=== PATIENT | female | born 1955 | race Two or more races ===

== ENCOUNTER → 2020-01-03 | Outpatient (CLI) | payer OTHER ==
[~2020-01-03] MED LIST: LIDOCAINE 4% 50 ML SOLUTION TP ONE
== END | disposition home or self-care (01) ==
LOC: HBOWC 11:28
PROVIDERS: ATTEND Surgery Plastic and Reconstructive Surgery
DX: T81.31XA Disruption of external operation (surgical) wound, not elsewhere classified, initial encounter (principal); S31.109A Unspecified open wound of abdominal wall, unspecified quadrant without penetration into peritoneal cavity, initial encounter; E66.01 Morbid (severe) obesity due to excess calories; K21.9 Gastro-esophageal reflux disease without esophagitis; Z86.14 Personal history of Methicillin resistant Staphylococcus aureus infection; Z68.36 Body mass index [BMI] 36.0-36.9, adult; Z79.2 Long term (current) use of antibiotics; Y83.8 Other surgical procedures as the cause of abnormal reaction of the patient, or of later complication, without mention of misadventure at the time of the procedure; Y92.89 Other specified places as the place of occurrence of the external cause; X58.XXXA Exposure to other specified factors, initial encounter; Y93.89 Activity, other specified; Y99.8 Other external cause status
CPT/HCPCS: 11043; 11046; G0463

== ENCOUNTER → 2020-01-10 | Outpatient (CLI) | payer OTHER | END | disposition home or self-care (01) | LOC: HBOWC 09:56 | PROVIDERS: ATTEND Surgery Plastic and Reconstructive Surgery | DX: T81.31XD Disruption of external operation (surgical) wound, not elsewhere classified, subsequent encounter (principal); S31.109D Unspecified open wound of abdominal wall, unspecified quadrant without penetration into peritoneal cavity, subsequent encounter; E66.01 Morbid (severe) obesity due to excess calories; K21.9 Gastro-esophageal reflux disease without esophagitis; Z86.14 Personal history of Methicillin resistant Staphylococcus aureus infection; Z68.36 Body mass index [BMI] 36.0-36.9, adult; Z79.2 Long term (current) use of antibiotics; Y83.8 Other surgical procedures as the cause of abnormal reaction of the patient, or of later complication, without mention of misadventure at the time of the procedure; X58.XXXD Exposure to other specified factors, subsequent encounter | CPT/HCPCS: 11043; 11046; 97605 ==

== ENCOUNTER → 2020-01-17 | Outpatient (CLI) | payer OTHER | END | disposition home or self-care (01) | LOC: HBOWC 11:20 | PROVIDERS: ATTEND Surgery Plastic and Reconstructive Surgery | DX: T81.31XD Disruption of external operation (surgical) wound, not elsewhere classified, subsequent encounter (principal); S31.109D Unspecified open wound of abdominal wall, unspecified quadrant without penetration into peritoneal cavity, subsequent encounter; E66.01 Morbid (severe) obesity due to excess calories; K21.9 Gastro-esophageal reflux disease without esophagitis; Z86.14 Personal history of Methicillin resistant Staphylococcus aureus infection; Z68.36 Body mass index [BMI] 36.0-36.9, adult; Z79.2 Long term (current) use of antibiotics; Y83.8 Other surgical procedures as the cause of abnormal reaction of the patient, or of later complication, without mention of misadventure at the time of the procedure; X58.XXXD Exposure to other specified factors, subsequent encounter | CPT/HCPCS: 11043; 11046; 97605 ==

== ENCOUNTER → 2020-01-24 | Outpatient (CLI) | payer OTHER | END | disposition home or self-care (01) | LOC: HBOWC 10:13 | PROVIDERS: ATTEND Surgery Plastic and Reconstructive Surgery | DX: T81.31XD Disruption of external operation (surgical) wound, not elsewhere classified, subsequent encounter (principal); S31.109D Unspecified open wound of abdominal wall, unspecified quadrant without penetration into peritoneal cavity, subsequent encounter; E66.01 Morbid (severe) obesity due to excess calories; K21.9 Gastro-esophageal reflux disease without esophagitis; Z86.14 Personal history of Methicillin resistant Staphylococcus aureus infection; Z68.36 Body mass index [BMI] 36.0-36.9, adult; Z79.2 Long term (current) use of antibiotics; Y83.8 Other surgical procedures as the cause of abnormal reaction of the patient, or of later complication, without mention of misadventure at the time of the procedure; X58.XXXD Exposure to other specified factors, subsequent encounter | CPT/HCPCS: 11043; 11046; 97605 ==

== ENCOUNTER → 2020-01-31 | Outpatient (CLI) | payer OTHER | END | disposition home or self-care (01) | LOC: HBOWC 10:10 | PROVIDERS: ATTEND Surgery Plastic and Reconstructive Surgery | DX: T81.31XD Disruption of external operation (surgical) wound, not elsewhere classified, subsequent encounter (principal); S31.109D Unspecified open wound of abdominal wall, unspecified quadrant without penetration into peritoneal cavity, subsequent encounter; E66.01 Morbid (severe) obesity due to excess calories; K21.9 Gastro-esophageal reflux disease without esophagitis; Z86.14 Personal history of Methicillin resistant Staphylococcus aureus infection; Z68.36 Body mass index [BMI] 36.0-36.9, adult; Z79.2 Long term (current) use of antibiotics; Y83.8 Other surgical procedures as the cause of abnormal reaction of the patient, or of later complication, without mention of misadventure at the time of the procedure; X58.XXXD Exposure to other specified factors, subsequent encounter | CPT/HCPCS: 11043; 11046; 97605 ==

== ENCOUNTER → 2020-02-07 | Outpatient (CLI) | payer OTHER | END | disposition home or self-care (01) | LOC: HBOWC 09:57 | PROVIDERS: ATTEND Surgery Plastic and Reconstructive Surgery | DX: T81.31XD Disruption of external operation (surgical) wound, not elsewhere classified, subsequent encounter (principal); S31.109D Unspecified open wound of abdominal wall, unspecified quadrant without penetration into peritoneal cavity, subsequent encounter; E66.01 Morbid (severe) obesity due to excess calories; K21.9 Gastro-esophageal reflux disease without esophagitis; Z86.14 Personal history of Methicillin resistant Staphylococcus aureus infection; Z68.36 Body mass index [BMI] 36.0-36.9, adult; Z79.2 Long term (current) use of antibiotics; X58.XXXD Exposure to other specified factors, subsequent encounter; Y83.8 Other surgical procedures as the cause of abnormal reaction of the patient, or of later complication, without mention of misadventure at the time of the procedure | CPT/HCPCS: 11043 ==

== ENCOUNTER → 2020-02-14 | Outpatient (CLI) | payer OTHER | END | disposition home or self-care (01) | LOC: HBOWC 09:54 | PROVIDERS: ATTEND Surgery Plastic and Reconstructive Surgery | DX: T81.31XD Disruption of external operation (surgical) wound, not elsewhere classified, subsequent encounter (principal); S31.109D Unspecified open wound of abdominal wall, unspecified quadrant without penetration into peritoneal cavity, subsequent encounter; E66.01 Morbid (severe) obesity due to excess calories; K21.9 Gastro-esophageal reflux disease without esophagitis; Z86.14 Personal history of Methicillin resistant Staphylococcus aureus infection; Z68.36 Body mass index [BMI] 36.0-36.9, adult; Z79.2 Long term (current) use of antibiotics; Y83.8 Other surgical procedures as the cause of abnormal reaction of the patient, or of later complication, without mention of misadventure at the time of the procedure; X58.XXXD Exposure to other specified factors, subsequent encounter | CPT/HCPCS: 11043; 97605 ==

== ENCOUNTER → 2020-02-22 | Outpatient (CLI) | payer OTHER | END | disposition home or self-care (01) | LOC: HBOWC 09:53 | PROVIDERS: ATTEND Emergency Medicine | DX: T81.31XD Disruption of external operation (surgical) wound, not elsewhere classified, subsequent encounter (principal); S31.109D Unspecified open wound of abdominal wall, unspecified quadrant without penetration into peritoneal cavity, subsequent encounter; E66.01 Morbid (severe) obesity due to excess calories; K21.9 Gastro-esophageal reflux disease without esophagitis; Z86.14 Personal history of Methicillin resistant Staphylococcus aureus infection; Z68.36 Body mass index [BMI] 36.0-36.9, adult; Z79.2 Long term (current) use of antibiotics; Y83.8 Other surgical procedures as the cause of abnormal reaction of the patient, or of later complication, without mention of misadventure at the time of the procedure; X58.XXXD Exposure to other specified factors, subsequent encounter | CPT/HCPCS: 11042; 97605 ==

== ENCOUNTER → 2020-02-29 | Outpatient (CLI) | payer OTHER | END | disposition home or self-care (01) | LOC: HBOWC 09:52 | PROVIDERS: ATTEND Emergency Medicine | DX: T81.31XD Disruption of external operation (surgical) wound, not elsewhere classified, subsequent encounter (principal); S31.109D Unspecified open wound of abdominal wall, unspecified quadrant without penetration into peritoneal cavity, subsequent encounter; E66.01 Morbid (severe) obesity due to excess calories; K21.9 Gastro-esophageal reflux disease without esophagitis; Z86.14 Personal history of Methicillin resistant Staphylococcus aureus infection; Z68.36 Body mass index [BMI] 36.0-36.9, adult; Z79.2 Long term (current) use of antibiotics; Y83.8 Other surgical procedures as the cause of abnormal reaction of the patient, or of later complication, without mention of misadventure at the time of the procedure; X58.XXXD Exposure to other specified factors, subsequent encounter | CPT/HCPCS: 11042 ==

== ENCOUNTER → 2020-03-06 | Outpatient (CLI) | payer OTHER | END | disposition home or self-care (01) | LOC: HBOWC 08:54 | PROVIDERS: ATTEND Surgery Plastic and Reconstructive Surgery | DX: T81.31XD Disruption of external operation (surgical) wound, not elsewhere classified, subsequent encounter (principal); S31.109D Unspecified open wound of abdominal wall, unspecified quadrant without penetration into peritoneal cavity, subsequent encounter; E66.01 Morbid (severe) obesity due to excess calories; K21.9 Gastro-esophageal reflux disease without esophagitis; Z86.14 Personal history of Methicillin resistant Staphylococcus aureus infection; Z68.36 Body mass index [BMI] 36.0-36.9, adult; Z79.2 Long term (current) use of antibiotics; Y83.8 Other surgical procedures as the cause of abnormal reaction of the patient, or of later complication, without mention of misadventure at the time of the procedure; X58.XXXD Exposure to other specified factors, subsequent encounter | CPT/HCPCS: 11043 ==

== ENCOUNTER → 2020-03-13 | Outpatient (CLI) | payer OTHER | END | disposition home or self-care (01) | LOC: HBOWC 09:53 | PROVIDERS: ATTEND Surgery Plastic and Reconstructive Surgery | DX: T81.31XD Disruption of external operation (surgical) wound, not elsewhere classified, subsequent encounter (principal); S31.109D Unspecified open wound of abdominal wall, unspecified quadrant without penetration into peritoneal cavity, subsequent encounter; E66.01 Morbid (severe) obesity due to excess calories; K21.9 Gastro-esophageal reflux disease without esophagitis; Z86.14 Personal history of Methicillin resistant Staphylococcus aureus infection; Z68.36 Body mass index [BMI] 36.0-36.9, adult; Z79.2 Long term (current) use of antibiotics; Y83.8 Other surgical procedures as the cause of abnormal reaction of the patient, or of later complication, without mention of misadventure at the time of the procedure; X58.XXXD Exposure to other specified factors, subsequent encounter | CPT/HCPCS: 11043 ==

== ENCOUNTER → 2020-03-20 | Outpatient (CLI) | payer OTHER ==
[~2020-03-20] MED LIST changes: +LIDOCAINE 2% 5 ML JELLY TP ONE; -LIDOCAINE 4% 50 ML SOLUTION TP ONE
== END | disposition home or self-care (01) ==
LOC: HBOWC 09:56
PROVIDERS: ATTEND Surgery Plastic and Reconstructive Surgery
DX: T81.31XD Disruption of external operation (surgical) wound, not elsewhere classified, subsequent encounter (principal); S31.109D Unspecified open wound of abdominal wall, unspecified quadrant without penetration into peritoneal cavity, subsequent encounter; E66.01 Morbid (severe) obesity due to excess calories; K21.9 Gastro-esophageal reflux disease without esophagitis; Z86.14 Personal history of Methicillin resistant Staphylococcus aureus infection; Z68.36 Body mass index [BMI] 36.0-36.9, adult; Z79.2 Long term (current) use of antibiotics; Y83.8 Other surgical procedures as the cause of abnormal reaction of the patient, or of later complication, without mention of misadventure at the time of the procedure; X58.XXXD Exposure to other specified factors, subsequent encounter
CPT/HCPCS: 11042

== ENCOUNTER → 2020-04-03 | Outpatient (CLI) | payer OTHER | END | disposition home or self-care (01) | LOC: HBOWC 09:30 | PROVIDERS: ATTEND Surgery Plastic and Reconstructive Surgery | DX: T81.31XD Disruption of external operation (surgical) wound, not elsewhere classified, subsequent encounter (principal); S31.109D Unspecified open wound of abdominal wall, unspecified quadrant without penetration into peritoneal cavity, subsequent encounter; E66.01 Morbid (severe) obesity due to excess calories; K21.9 Gastro-esophageal reflux disease without esophagitis; Z86.14 Personal history of Methicillin resistant Staphylococcus aureus infection; Z68.36 Body mass index [BMI] 36.0-36.9, adult; Z79.2 Long term (current) use of antibiotics; Y83.8 Other surgical procedures as the cause of abnormal reaction of the patient, or of later complication, without mention of misadventure at the time of the procedure; X58.XXXD Exposure to other specified factors, subsequent encounter | CPT/HCPCS: 11042 ==

== ENCOUNTER → 2020-04-10 | Outpatient (CLI) | payer OTHER | END | disposition home or self-care (01) | LOC: HBOWC 10:00 | PROVIDERS: ATTEND Surgery Plastic and Reconstructive Surgery | DX: T81.31XD Disruption of external operation (surgical) wound, not elsewhere classified, subsequent encounter (principal); S31.109D Unspecified open wound of abdominal wall, unspecified quadrant without penetration into peritoneal cavity, subsequent encounter; E66.01 Morbid (severe) obesity due to excess calories; K21.9 Gastro-esophageal reflux disease without esophagitis; Z86.14 Personal history of Methicillin resistant Staphylococcus aureus infection; Z68.36 Body mass index [BMI] 36.0-36.9, adult; Z79.2 Long term (current) use of antibiotics; Y83.8 Other surgical procedures as the cause of abnormal reaction of the patient, or of later complication, without mention of misadventure at the time of the procedure; X58.XXXD Exposure to other specified factors, subsequent encounter ==

== ENCOUNTER → 2020-05-01 | Outpatient (CLI) | payer OTHER | END | disposition home or self-care (01) | LOC: HBOWC 09:55 | PROVIDERS: ATTEND Surgery Plastic and Reconstructive Surgery | DX: T81.31XD Disruption of external operation (surgical) wound, not elsewhere classified, subsequent encounter (principal); S31.109D Unspecified open wound of abdominal wall, unspecified quadrant without penetration into peritoneal cavity, subsequent encounter; E66.01 Morbid (severe) obesity due to excess calories; K21.9 Gastro-esophageal reflux disease without esophagitis; Z86.14 Personal history of Methicillin resistant Staphylococcus aureus infection; Z68.36 Body mass index [BMI] 36.0-36.9, adult; Z79.2 Long term (current) use of antibiotics; Y83.8 Other surgical procedures as the cause of abnormal reaction of the patient, or of later complication, without mention of misadventure at the time of the procedure; X58.XXXD Exposure to other specified factors, subsequent encounter ==

== ENCOUNTER → 2020-08-14 | Outpatient (CLI) | payer MEDICARE, OTHER | END | disposition home or self-care (01) | LOC: HBOWC 09:55 | PROVIDERS: ATTEND Surgery Plastic and Reconstructive Surgery | DX: T81.31XD Disruption of external operation (surgical) wound, not elsewhere classified, subsequent encounter (principal); S31.109D Unspecified open wound of abdominal wall, unspecified quadrant without penetration into peritoneal cavity, subsequent encounter; E66.01 Morbid (severe) obesity due to excess calories; K21.9 Gastro-esophageal reflux disease without esophagitis; Z86.14 Personal history of Methicillin resistant Staphylococcus aureus infection; Z68.36 Body mass index [BMI] 36.0-36.9, adult; Z79.2 Long term (current) use of antibiotics; Y83.8 Other surgical procedures as the cause of abnormal reaction of the patient, or of later complication, without mention of misadventure at the time of the procedure; X58.XXXD Exposure to other specified factors, subsequent encounter | CPT/HCPCS: 11043 ==

== ENCOUNTER → 2020-08-21 | Outpatient (CLI) | payer MEDICARE, OTHER | END | disposition home or self-care (01) | LOC: HBOWC 09:31 | PROVIDERS: ATTEND Surgery Plastic and Reconstructive Surgery | DX: T81.31XD Disruption of external operation (surgical) wound, not elsewhere classified, subsequent encounter (principal); S31.109D Unspecified open wound of abdominal wall, unspecified quadrant without penetration into peritoneal cavity, subsequent encounter; E66.01 Morbid (severe) obesity due to excess calories; K21.9 Gastro-esophageal reflux disease without esophagitis; Z86.14 Personal history of Methicillin resistant Staphylococcus aureus infection; Z79.2 Long term (current) use of antibiotics; Z68.36 Body mass index [BMI] 36.0-36.9, adult; Y83.8 Other surgical procedures as the cause of abnormal reaction of the patient, or of later complication, without mention of misadventure at the time of the procedure; X58.XXXD Exposure to other specified factors, subsequent encounter | CPT/HCPCS: 11043 ==

== ENCOUNTER → 2020-08-28 | Outpatient (CLI) | payer MEDICARE, OTHER | END | disposition home or self-care (01) | LOC: HBOWC 10:19 | PROVIDERS: ATTEND Surgery Plastic and Reconstructive Surgery | DX: T81.31XD Disruption of external operation (surgical) wound, not elsewhere classified, subsequent encounter (principal); S31.109D Unspecified open wound of abdominal wall, unspecified quadrant without penetration into peritoneal cavity, subsequent encounter; K21.9 Gastro-esophageal reflux disease without esophagitis; E66.01 Morbid (severe) obesity due to excess calories; Z68.36 Body mass index [BMI] 36.0-36.9, adult; Z86.14 Personal history of Methicillin resistant Staphylococcus aureus infection; X58.XXXD Exposure to other specified factors, subsequent encounter; Y83.8 Other surgical procedures as the cause of abnormal reaction of the patient, or of later complication, without mention of misadventure at the time of the procedure | CPT/HCPCS: 11043 ==

== ENCOUNTER → 2020-09-11 | Outpatient (CLI) | payer MEDICARE, OTHER | END | disposition home or self-care (01) | LOC: HBOWC 09:59 | PROVIDERS: ATTEND Surgery Plastic and Reconstructive Surgery | DX: T81.31XD Disruption of external operation (surgical) wound, not elsewhere classified, subsequent encounter (principal); S31.109D Unspecified open wound of abdominal wall, unspecified quadrant without penetration into peritoneal cavity, subsequent encounter; K21.9 Gastro-esophageal reflux disease without esophagitis; E66.01 Morbid (severe) obesity due to excess calories; Z68.36 Body mass index [BMI] 36.0-36.9, adult; Z86.14 Personal history of Methicillin resistant Staphylococcus aureus infection; Z79.2 Long term (current) use of antibiotics; Y83.8 Other surgical procedures as the cause of abnormal reaction of the patient, or of later complication, without mention of misadventure at the time of the procedure; X58.XXXD Exposure to other specified factors, subsequent encounter | CPT/HCPCS: 11043 ==

== ENCOUNTER → 2020-09-25 | Outpatient (CLI) | payer MEDICARE, OTHER | END | disposition home or self-care (01) | LOC: HBOWC 10:11 | PROVIDERS: ATTEND Surgery Plastic and Reconstructive Surgery | DX: T81.31XD Disruption of external operation (surgical) wound, not elsewhere classified, subsequent encounter (principal); S31.109D Unspecified open wound of abdominal wall, unspecified quadrant without penetration into peritoneal cavity, subsequent encounter; K21.9 Gastro-esophageal reflux disease without esophagitis; E66.01 Morbid (severe) obesity due to excess calories; Z68.36 Body mass index [BMI] 36.0-36.9, adult; Z86.14 Personal history of Methicillin resistant Staphylococcus aureus infection; Z79.2 Long term (current) use of antibiotics; Y83.8 Other surgical procedures as the cause of abnormal reaction of the patient, or of later complication, without mention of misadventure at the time of the procedure; X58.XXXD Exposure to other specified factors, subsequent encounter | CPT/HCPCS: 11043 ==

== ENCOUNTER → 2020-10-02 | Outpatient (CLI) | payer MEDICARE, OTHER | END | disposition home or self-care (01) | LOC: HBOWC 09:58 | PROVIDERS: ATTEND Surgery Plastic and Reconstructive Surgery | DX: T81.31XD Disruption of external operation (surgical) wound, not elsewhere classified, subsequent encounter (principal); S31.109D Unspecified open wound of abdominal wall, unspecified quadrant without penetration into peritoneal cavity, subsequent encounter; K21.9 Gastro-esophageal reflux disease without esophagitis; E66.01 Morbid (severe) obesity due to excess calories; Z68.36 Body mass index [BMI] 36.0-36.9, adult; Z86.14 Personal history of Methicillin resistant Staphylococcus aureus infection; Z79.2 Long term (current) use of antibiotics; Y83.8 Other surgical procedures as the cause of abnormal reaction of the patient, or of later complication, without mention of misadventure at the time of the procedure; X58.XXXD Exposure to other specified factors, subsequent encounter ==

== ENCOUNTER → 2020-10-16 | Outpatient (CLI) | payer MEDICARE, OTHER | END | disposition home or self-care (01) | LOC: HBOWC 10:27 | PROVIDERS: ATTEND Surgery Plastic and Reconstructive Surgery | DX: T81.31XD Disruption of external operation (surgical) wound, not elsewhere classified, subsequent encounter (principal); S31.109D Unspecified open wound of abdominal wall, unspecified quadrant without penetration into peritoneal cavity, subsequent encounter; K21.9 Gastro-esophageal reflux disease without esophagitis; E66.01 Morbid (severe) obesity due to excess calories; Z68.36 Body mass index [BMI] 36.0-36.9, adult; Z86.14 Personal history of Methicillin resistant Staphylococcus aureus infection; Z79.2 Long term (current) use of antibiotics; Y83.8 Other surgical procedures as the cause of abnormal reaction of the patient, or of later complication, without mention of misadventure at the time of the procedure; X58.XXXD Exposure to other specified factors, subsequent encounter | CPT/HCPCS: 11043 ==

== ENCOUNTER → 2020-10-23 | Outpatient (CLI) | payer MEDICARE, OTHER | END | disposition home or self-care (01) | LOC: HBOWC 10:34 | PROVIDERS: ATTEND Surgery Plastic and Reconstructive Surgery | DX: T81.31XD Disruption of external operation (surgical) wound, not elsewhere classified, subsequent encounter (principal); S31.109D Unspecified open wound of abdominal wall, unspecified quadrant without penetration into peritoneal cavity, subsequent encounter; K21.9 Gastro-esophageal reflux disease without esophagitis; E66.01 Morbid (severe) obesity due to excess calories; Z68.36 Body mass index [BMI] 36.0-36.9, adult; Z86.14 Personal history of Methicillin resistant Staphylococcus aureus infection; Z79.2 Long term (current) use of antibiotics; Y83.8 Other surgical procedures as the cause of abnormal reaction of the patient, or of later complication, without mention of misadventure at the time of the procedure; X58.XXXD Exposure to other specified factors, subsequent encounter | CPT/HCPCS: 11043; 87070 ==

== ENCOUNTER → 2020-10-30 | Outpatient (CLI) | payer MEDICARE, OTHER | END | disposition home or self-care (01) | LOC: HBOWC 13:58 | PROVIDERS: ATTEND Surgery Plastic and Reconstructive Surgery | DX: T81.31XD Disruption of external operation (surgical) wound, not elsewhere classified, subsequent encounter (principal); S31.109D Unspecified open wound of abdominal wall, unspecified quadrant without penetration into peritoneal cavity, subsequent encounter; K21.9 Gastro-esophageal reflux disease without esophagitis; E66.01 Morbid (severe) obesity due to excess calories; Z68.36 Body mass index [BMI] 36.0-36.9, adult; Z86.14 Personal history of Methicillin resistant Staphylococcus aureus infection; Z79.2 Long term (current) use of antibiotics; Y83.8 Other surgical procedures as the cause of abnormal reaction of the patient, or of later complication, without mention of misadventure at the time of the procedure; X58.XXXD Exposure to other specified factors, subsequent encounter ==

== ENCOUNTER → 2020-11-06 | Outpatient (CLI) | payer MEDICARE, OTHER | END | disposition home or self-care (01) | LOC: HBOWC 09:53 | PROVIDERS: ATTEND Surgery Plastic and Reconstructive Surgery | DX: T81.31XD Disruption of external operation (surgical) wound, not elsewhere classified, subsequent encounter (principal); S31.109D Unspecified open wound of abdominal wall, unspecified quadrant without penetration into peritoneal cavity, subsequent encounter; K21.9 Gastro-esophageal reflux disease without esophagitis; E66.01 Morbid (severe) obesity due to excess calories; Z68.36 Body mass index [BMI] 36.0-36.9, adult; Z86.14 Personal history of Methicillin resistant Staphylococcus aureus infection; Z79.2 Long term (current) use of antibiotics; Y83.8 Other surgical procedures as the cause of abnormal reaction of the patient, or of later complication, without mention of misadventure at the time of the procedure; X58.XXXD Exposure to other specified factors, subsequent encounter | CPT/HCPCS: 11043 ==

== ENCOUNTER → 2020-11-13 | Outpatient (CLI) | payer MEDICARE, OTHER ==
[2020-11-13 10:34] LABS: CREATININE 0.76 mg/dL (0.60-1.30); GLOMERULAR FILTR. RATE CALC > 60 mL/min (>60); UREA NITROGEN, BLOOD 17 mg/dL (7-18)
== END | disposition home or self-care (01) ==
LOC: LABPV 08:31
PROVIDERS: ATTEND Surgery Plastic and Reconstructive Surgery
DX: S31.109A Unspecified open wound of abdominal wall, unspecified quadrant without penetration into peritoneal cavity, initial encounter (principal); T81.30XA Disruption of wound, unspecified, initial encounter; X58.XXXA Exposure to other specified factors, initial encounter; Y93.89 Activity, other specified; Y92.89 Other specified places as the place of occurrence of the external cause; Y99.8 Other external cause status
CPT/HCPCS: 82565; 84520

== ENCOUNTER → 2020-11-13 | Outpatient (CLI) | payer MEDICARE, OTHER | END | disposition home or self-care (01) | LOC: HBOWC 08:59 | PROVIDERS: ATTEND Surgery Plastic and Reconstructive Surgery | DX: T81.31XD Disruption of external operation (surgical) wound, not elsewhere classified, subsequent encounter (principal); S31.109D Unspecified open wound of abdominal wall, unspecified quadrant without penetration into peritoneal cavity, subsequent encounter; K21.9 Gastro-esophageal reflux disease without esophagitis; E66.01 Morbid (severe) obesity due to excess calories; Z68.36 Body mass index [BMI] 36.0-36.9, adult; Z86.14 Personal history of Methicillin resistant Staphylococcus aureus infection; Y83.8 Other surgical procedures as the cause of abnormal reaction of the patient, or of later complication, without mention of misadventure at the time of the procedure; X58.XXXD Exposure to other specified factors, subsequent encounter | CPT/HCPCS: 11043 ==

== ENCOUNTER → 2020-11-14 | Outpatient (CLI) | payer MEDICARE, OTHER ==
[~2020-11-14] MED LIST changes: +A20IH1 NEB; +ACET-3207 PO; +AMOX-429 PO; +BISA-151 PO; +DOCU100C34 PO; +HYDR-4723 PO; +HYDR1LIQ IVP; +IOHEXOL 180 MG/ML 20 ML VIAL ONE; +IPRAHFA IH; +IPRAHFA NEB; -LIDOCAINE 2% 5 ML JELLY TP ONE; +MOM30 PO; +NUTR1PAC14 PO; +OMEP10CA5 PO; +ONDA4AMP IVP; +OXYC-38 PO; +ZOLP-280 PO; +[UNRECOGNIZED DRUG - CODE] PO
== END | disposition home or self-care (01) ==
LOC: RADMN 08:54
PROVIDERS: ATTEND Surgery Plastic and Reconstructive Surgery
DX: S31.101A Unspecified open wound of abdominal wall, left upper quadrant without penetration into peritoneal cavity, initial encounter (principal); K57.30 Diverticulosis of large intestine without perforation or abscess without bleeding; X58.XXXA Exposure to other specified factors, initial encounter; Y93.89 Activity, other specified; Y92.89 Other specified places as the place of occurrence of the external cause; Y99.8 Other external cause status
CPT/HCPCS: 74178; Q9965; 76001

== ENCOUNTER → 2020-11-20 | Outpatient (CLI) | payer MEDICARE, OTHER | END | disposition home or self-care (01) | LOC: HBOWC 14:06 | PROVIDERS: ATTEND Surgery Plastic and Reconstructive Surgery | DX: T81.31XD Disruption of external operation (surgical) wound, not elsewhere classified, subsequent encounter (principal); S31.109D Unspecified open wound of abdominal wall, unspecified quadrant without penetration into peritoneal cavity, subsequent encounter; K21.9 Gastro-esophageal reflux disease without esophagitis; E66.01 Morbid (severe) obesity due to excess calories; Z68.36 Body mass index [BMI] 36.0-36.9, adult; Z86.14 Personal history of Methicillin resistant Staphylococcus aureus infection; Z79.2 Long term (current) use of antibiotics; Y83.8 Other surgical procedures as the cause of abnormal reaction of the patient, or of later complication, without mention of misadventure at the time of the procedure; X58.XXXD Exposure to other specified factors, subsequent encounter | CPT/HCPCS: 11043 ==

== ENCOUNTER → 2020-11-27 | Outpatient (CLI) | payer MEDICARE, OTHER ==
[~2020-11-27] MED LIST changes: -A20IH1 NEB; -ACET-3207 PO; -AMOX-429 PO; -BISA-151 PO; -DOCU100C34 PO; -HYDR-4723 PO; -HYDR1LIQ IVP; -IOHEXOL 180 MG/ML 20 ML VIAL ONE; -IPRAHFA IH; -IPRAHFA NEB; +LIDOCAINE 4% 50 ML SOLUTION TP ONE; -MOM30 PO; -NUTR1PAC14 PO; -OMEP10CA5 PO; -ONDA4AMP IVP; -OXYC-38 PO; -ZOLP-280 PO; -[UNRECOGNIZED DRUG - CODE] PO
== END | disposition home or self-care (01) ==
LOC: HBOWC 10:20
PROVIDERS: ATTEND Surgery Plastic and Reconstructive Surgery
DX: T81.31XD Disruption of external operation (surgical) wound, not elsewhere classified, subsequent encounter (principal); S31.109D Unspecified open wound of abdominal wall, unspecified quadrant without penetration into peritoneal cavity, subsequent encounter; K21.9 Gastro-esophageal reflux disease without esophagitis; Z86.14 Personal history of Methicillin resistant Staphylococcus aureus infection; E66.01 Morbid (severe) obesity due to excess calories; Z68.1 Body mass index [BMI] 19.9 or less, adult; Z79.2 Long term (current) use of antibiotics; X58.XXXD Exposure to other specified factors, subsequent encounter; Y83.8 Other surgical procedures as the cause of abnormal reaction of the patient, or of later complication, without mention of misadventure at the time of the procedure
CPT/HCPCS: 11043; Z7610

== ENCOUNTER → 2020-12-11 | Outpatient (CLI) | payer MEDICARE, OTHER | END | disposition home or self-care (01) | LOC: HBOWC 09:49 | PROVIDERS: ATTEND Surgery Plastic and Reconstructive Surgery | DX: T81.31XD Disruption of external operation (surgical) wound, not elsewhere classified, subsequent encounter (principal); S31.109D Unspecified open wound of abdominal wall, unspecified quadrant without penetration into peritoneal cavity, subsequent encounter; K21.9 Gastro-esophageal reflux disease without esophagitis; E66.01 Morbid (severe) obesity due to excess calories; Z68.1 Body mass index [BMI] 19.9 or less, adult; Z86.14 Personal history of Methicillin resistant Staphylococcus aureus infection; Z79.2 Long term (current) use of antibiotics; X58.XXXD Exposure to other specified factors, subsequent encounter; Y83.8 Other surgical procedures as the cause of abnormal reaction of the patient, or of later complication, without mention of misadventure at the time of the procedure | CPT/HCPCS: 11043 ==

== ENCOUNTER → 2020-12-25 | Outpatient (CLI) | payer MEDICARE, OTHER | END | disposition home or self-care (01) | LOC: HBOWC 10:26 | PROVIDERS: ATTEND Surgery Plastic and Reconstructive Surgery | DX: T81.31XD Disruption of external operation (surgical) wound, not elsewhere classified, subsequent encounter (principal); S31.109D Unspecified open wound of abdominal wall, unspecified quadrant without penetration into peritoneal cavity, subsequent encounter; K21.9 Gastro-esophageal reflux disease without esophagitis; E66.01 Morbid (severe) obesity due to excess calories; Z68.36 Body mass index [BMI] 36.0-36.9, adult; Z86.14 Personal history of Methicillin resistant Staphylococcus aureus infection; Z79.2 Long term (current) use of antibiotics; X58.XXXD Exposure to other specified factors, subsequent encounter; Y83.8 Other surgical procedures as the cause of abnormal reaction of the patient, or of later complication, without mention of misadventure at the time of the procedure | CPT/HCPCS: 11043 ==

== ENCOUNTER → 2021-01-22 | Outpatient (CLI) | payer MEDICARE, OTHER | END | disposition home or self-care (01) | LOC: HBOWC 09:54 | PROVIDERS: ATTEND Surgery Plastic and Reconstructive Surgery | DX: T81.31XD Disruption of external operation (surgical) wound, not elsewhere classified, subsequent encounter (principal); S31.109D Unspecified open wound of abdominal wall, unspecified quadrant without penetration into peritoneal cavity, subsequent encounter; K21.9 Gastro-esophageal reflux disease without esophagitis; E66.01 Morbid (severe) obesity due to excess calories; Z97.8 Presence of other specified devices; Z68.36 Body mass index [BMI] 36.0-36.9, adult; Z86.14 Personal history of Methicillin resistant Staphylococcus aureus infection; Z79.899 Other long term (current) drug therapy; Y83.8 Other surgical procedures as the cause of abnormal reaction of the patient, or of later complication, without mention of misadventure at the time of the procedure; X58.XXXD Exposure to other specified factors, subsequent encounter | CPT/HCPCS: 11043 ==

== ENCOUNTER → 2021-01-22 | Outpatient (CLI) | payer MEDICARE, OTHER ==
[2021-01-22 12:28] LABS: BASOPHILS % (AUTO) 0.6 % (0.0-2.0); EOSINOPHILS % (AUTO) 5.6 % (1.0-6.0); HEMATOCRIT 34.9 % (36-46); HEMOGLOBIN 11.5 g/dL (12.0-16.0); LYMPHOCYTES # (AUTO) 1.6 K/uL (1.0-4.8); LYMPHOCYTES % (AUTO) 25.8 % (22.0-44.0); MEAN CORPUSCULAR HEMOGLOBIN 27.7 pg (26.0-34.0); MEAN CORPUSCULAR VOLUME 84 fL (80-100); MONOCYTES # (AUTO) 0.3 K/uL (0.1-1.0); MONOCYTES % (AUTO) 5.5 % (2.0-9.0); NEUTROPHILS % (AUTO) 62.5 % (40.0-70.0); PLATELET COUNT (AUTO) 338 K/uL (150-450); RED BLOOD CELL COUNT(AUTO) 4.16 MIL/uL (4.00-5.20); RED CELL DISTRIBUTION WIDTH 14.8 % (11.5-14.5)
[2021-01-22 12:41] LABS: ALANINE AMINOTRANSFERASE 16 U/L (12-78); ALBUMIN 3.4 g/dL (3.4-5.0); ALKALINE PHOSPHATASE 90 U/L (46-116); ANION GAP 7 mmol/L (8-16); ASPARTATE AMINOTRANSFERASE 16 U/L (15-37); BILIRUBIN,TOTAL 0.2 mg/dL (0.1-1.0); CARBON DIOXIDE 29 mmol/L (22-29); CHLORIDE 104 mmol/L (98-107); CREATININE 0.61 mg/dL (0.60-1.30); GLOMERULAR FILTR. RATE CALC > 60 mL/min (>60); GLUCOSE,RANDOM 87 mg/dL (70-110); POTASSIUM 4.2 mmol/L (3.5-5.1); SODIUM SERUM 140 mmol/L (136-145); UREA NITROGEN, BLOOD 15 mg/dL (7-18)
[2021-01-22 12:46] LABS: PROTHROMBIN TIME 10.7 SEC (9.4-11.6)
== END | disposition home or self-care (01) ==
LOC: LABPV 10:56
PROVIDERS: ATTEND Surgery Plastic and Reconstructive Surgery
DX: Z01.818 Encounter for other preprocedural examination (principal); S31.109D Unspecified open wound of abdominal wall, unspecified quadrant without penetration into peritoneal cavity, subsequent encounter; T81.30XA Disruption of wound, unspecified, initial encounter
CPT/HCPCS: 80053; 85025; 85610; 85730

== ENCOUNTER → 2021-02-07 | Outpatient (CLI) | payer MEDICARE, OTHER | END | disposition home or self-care (01) | LOC: HBOWC 10:20 | PROVIDERS: ATTEND Surgery Plastic and Reconstructive Surgery | DX: T81.31XD Disruption of external operation (surgical) wound, not elsewhere classified, subsequent encounter (principal); S31.109D Unspecified open wound of abdominal wall, unspecified quadrant without penetration into peritoneal cavity, subsequent encounter; K21.9 Gastro-esophageal reflux disease without esophagitis; E66.01 Morbid (severe) obesity due to excess calories; Z97.8 Presence of other specified devices; Z68.36 Body mass index [BMI] 36.0-36.9, adult; Z86.14 Personal history of Methicillin resistant Staphylococcus aureus infection; Z79.899 Other long term (current) drug therapy; Z79.2 Long term (current) use of antibiotics; Y83.8 Other surgical procedures as the cause of abnormal reaction of the patient, or of later complication, without mention of misadventure at the time of the procedure; X58.XXXD Exposure to other specified factors, subsequent encounter | CPT/HCPCS: 11043 ==

== ENCOUNTER → 2021-02-07 | Outpatient (CLI) | payer MEDICARE, OTHER | END | disposition home or self-care (01) | LOC: CARDPV 11:32 | PROVIDERS: ATTEND Surgery Plastic and Reconstructive Surgery | DX: Z01.810 Encounter for preprocedural cardiovascular examination (principal) | CPT/HCPCS: 93005 ==

== ENCOUNTER → 2021-03-14 | Outpatient (CLI) | payer MEDICARE, OTHER ==
[~2021-03-14] MED LIST changes: +A20IH1 NEB; +ACET-3207 PO; +AMOX-429 PO; +BISA-151 PO; +DOCU100C34 PO; +HYDR-4723 PO; +HYDR1LIQ IVP; +IPRAHFA IH; +IPRAHFA NEB; -LIDOCAINE 4% 50 ML SOLUTION TP ONE; +MOM30 PO; +NUTR1PAC14 PO; +OMEP10CA5 PO; +ONDA4AMP IVP; +OXYC-38 PO; +ZOLP-280 PO; +[UNRECOGNIZED DRUG - CODE] PO
== END | disposition home or self-care (01) ==
LOC: HBOWC 10:34
PROVIDERS: ATTEND Surgery Plastic and Reconstructive Surgery
DX: T81.31XD Disruption of external operation (surgical) wound, not elsewhere classified, subsequent encounter (principal); S31.109D Unspecified open wound of abdominal wall, unspecified quadrant without penetration into peritoneal cavity, subsequent encounter; K21.9 Gastro-esophageal reflux disease without esophagitis; E66.01 Morbid (severe) obesity due to excess calories; Z97.8 Presence of other specified devices; Z68.36 Body mass index [BMI] 36.0-36.9, adult; Z86.14 Personal history of Methicillin resistant Staphylococcus aureus infection; Z79.899 Other long term (current) drug therapy; Z79.2 Long term (current) use of antibiotics; Y83.8 Other surgical procedures as the cause of abnormal reaction of the patient, or of later complication, without mention of misadventure at the time of the procedure; X58.XXXD Exposure to other specified factors, subsequent encounter
CPT/HCPCS: 99214

== ENCOUNTER 2021-03-15 19:30 | Emergency (ER) | payer MEDICARE, OTHER ==
[~2021-03-15] VITALS: Ht 162.6 cm; Wt 95.5 kg
[~2021-03-15 19:30] MED LIST changes: -AMOX-429 PO; -NUTR1PAC14 PO
[2021-03-15] MEDS ORDERED: SODIUM CHLORIDE 0.9% 1,000 ML IV ONE (19:45)
[2021-03-15] MEDS ORDERED: MORPHINE SULFATE 2 MG/ML SYRINGE IVP ONE (19:45)
[2021-03-15] MEDS ORDERED: HYDR-4723 PO (19:47)
[2021-03-15] MEDS ORDERED: NUTR1PAC14 PO (19:47)
[2021-03-15] MEDS ORDERED: AMOX-429 PO (19:47)
[2021-03-15 20:29] LABS: BASOPHILS % (AUTO) 0.3 % (0.0-2.0); EOSINOPHILS % (AUTO) 7.4 % (1.0-6.0); HEMATOCRIT 27.5 % (36-46); LYMPHOCYTES # (AUTO) 1.6 K/uL (1.0-4.8); LYMPHOCYTES % (AUTO) 25.7 % (22.0-44.0); MEAN CORPUSCULAR HEMOGLOBIN 27.4 pg (26.0-34.0); MEAN CORPUSCULAR HGB CONC 32.5 G/dL (31.0-37.0); MEAN CORPUSCULAR VOLUME 84 fL (80-100); MONOCYTES # (AUTO) 0.4 K/uL (0.1-1.0); MONOCYTES % (AUTO) 7.4 % (2.0-9.0); NEUTROPHILS # (AUTO) 3.6 K/uL (1.8-7.7); NEUTROPHILS % (AUTO) 59.2 % (40.0-70.0); PLATELET COUNT (AUTO) 473 K/uL (150-450); RED BLOOD CELL COUNT(AUTO) 3.27 MIL/uL (4.00-5.20); RED CELL DISTRIBUTION WIDTH 14.8 % (11.5-14.5)
[2021-03-15 20:43] LABS: ANION GAP 8 mmol/L (8-16); CALCIUM, TOTAL 8.5 mg/dL (8.8-10.5); CARBON DIOXIDE 27 mmol/L (22-29); CHLORIDE 101 mmol/L (98-107); CREATININE 0.67 mg/dL (0.60-1.30); GLOMERULAR FILTR. RATE CALC > 60 mL/min (>60); GLUCOSE,RANDOM 105 mg/dL (70-110); SODIUM SERUM 136 mmol/L (136-145); UREA NITROGEN, BLOOD 23 mg/dL (7-18)
[2021-03-15 20:48] LABS: ALANINE AMINOTRANSFERASE 16 U/L (12-78); ALBUMIN 2.6 g/dL (3.4-5.0); ALKALINE PHOSPHATASE 97 U/L (46-116); ASPARTATE AMINOTRANSFERASE 18 U/L (15-37); BILIRUBIN,TOTAL 0.2 mg/dL (0.1-1.0); LIPASE 74 U/L (73-393); TOTAL PROTEIN, SERUM 6.6 g/dL (6.4-8.2)
[2021-03-15 20:51] LABS: LACTIC ACID 1.1 mmol/L (0.4-2.0)
[2021-03-15 21:00] VITALS: BP 113/74
== END 2021-03-15 22:19 | disposition home or self-care (01) ==
LOC: EMS 19:33
DX: T81.49XA Infection following a procedure, other surgical site, initial encounter (principal); Y83.8 Other surgical procedures as the cause of abnormal reaction of the patient, or of later complication, without mention of misadventure at the time of the procedure; Y73.3 Surgical instruments, materials and gastroenterology and urology devices (including sutures) associated with adverse incidents
CPT/HCPCS: 36415; 71045; 74176; 80053; 83605; 83690; 84484; 85025; 93005; 96361; 96374; 99285; J2270; J7030

== ENCOUNTER → 2021-03-21 | Outpatient (CLI) | payer MEDICARE, OTHER ==
[~2021-03-21] MED LIST changes: +AMOX-429 PO; -HYDR1LIQ IVP; +NUTR1PAC14 PO; -ONDA4AMP IVP; -OXYC-38 PO; -ZOLP-280 PO
== END | disposition home or self-care (01) ==
LOC: HBOWC 08:26
PROVIDERS: ATTEND Surgery Plastic and Reconstructive Surgery
DX: T81.31XD Disruption of external operation (surgical) wound, not elsewhere classified, subsequent encounter (principal); S31.109D Unspecified open wound of abdominal wall, unspecified quadrant without penetration into peritoneal cavity, subsequent encounter; K21.9 Gastro-esophageal reflux disease without esophagitis; E66.01 Morbid (severe) obesity due to excess calories; Z97.8 Presence of other specified devices; Z68.36 Body mass index [BMI] 36.0-36.9, adult; Z86.14 Personal history of Methicillin resistant Staphylococcus aureus infection; Z79.899 Other long term (current) drug therapy; Z79.2 Long term (current) use of antibiotics; Z20.822 Contact with and (suspected) exposure to COVID-19; Y83.8 Other surgical procedures as the cause of abnormal reaction of the patient, or of later complication, without mention of misadventure at the time of the procedure; X58.XXXD Exposure to other specified factors, subsequent encounter
CPT/HCPCS: 99214

== ENCOUNTER → 2021-04-18 | Outpatient (CLI) | payer MEDICARE, OTHER | END | disposition home or self-care (01) | LOC: HBOWC 08:23 | PROVIDERS: ATTEND Surgery Plastic and Reconstructive Surgery | DX: T81.31XD Disruption of external operation (surgical) wound, not elsewhere classified, subsequent encounter (principal); S31.109D Unspecified open wound of abdominal wall, unspecified quadrant without penetration into peritoneal cavity, subsequent encounter; K21.9 Gastro-esophageal reflux disease without esophagitis; E66.01 Morbid (severe) obesity due to excess calories; Z97.8 Presence of other specified devices; Z68.36 Body mass index [BMI] 36.0-36.9, adult; Z86.14 Personal history of Methicillin resistant Staphylococcus aureus infection; Z79.899 Other long term (current) drug therapy; Z79.2 Long term (current) use of antibiotics; Z20.822 Contact with and (suspected) exposure to COVID-19; Y83.8 Other surgical procedures as the cause of abnormal reaction of the patient, or of later complication, without mention of misadventure at the time of the procedure; X58.XXXD Exposure to other specified factors, subsequent encounter | CPT/HCPCS: G0463; Z7500 ==